=== PATIENT | female | born 1965 | race Asian ===

== ENCOUNTER 2016-06-04 08:58 | Outpatient (CLI) | payer OTHER ==
[~2016-06-04 08:58] MED LIST: ACET5TAB36 PO; AMOX875T8 PO; FLEXERIL5 MG PO; GLIM4TAB PO; GLIP5TAB65 PO; METF500T PO
== END 2016-06-04 10:58 | disposition home or self-care (01) ==
LOC: RAD 08:58
DX: M54.2 Cervicalgia (principal); M25.559 Pain in unspecified hip; M25.511 Pain in right shoulder

== ENCOUNTER 2017-02-09 12:55 | Outpatient (CLI) | payer OTHER | END 2017-02-09 19:25 | disposition home or self-care (01) | LOC: MAMMO 12:55 | DX: Z12.31 Encounter for screening mammogram for malignant neoplasm of breast (principal) ==

== ENCOUNTER 2017-05-23 16:15 | Outpatient (CLI) | payer OTHER | END 2017-05-23 17:15 | disposition home or self-care (01) | LOC: RAD 16:15 | DX: J40 Bronchitis, not specified as acute or chronic (principal); R05 Cough ==

== ENCOUNTER 2018-03-07 10:16 | Outpatient (CLI) | payer OTHER | END 2018-03-07 19:49 | disposition home or self-care (01) | LOC: MAMMO 10:16 | DX: Z12.31 Encounter for screening mammogram for malignant neoplasm of breast (principal) ==

== ENCOUNTER 2018-04-09 09:03 | Outpatient (CLI) | payer OTHER | END 2018-04-09 20:29 | disposition home or self-care (01) | LOC: MRI 09:03 | DX: M47.22 Other spondylosis with radiculopathy, cervical region (principal) ==

== ENCOUNTER 2018-12-17 09:38 | Outpatient (CLI) | payer OTHER ==
[2018-12-17 09:52] LABS: PLATELET COUNT 231 K/uL (152-353)
[2018-12-17 10:13] LABS: POTASSIUM 3.7 mmol/L (3.6-5.2)
== END 2018-12-17 20:36 | disposition home or self-care (01) ==
LOC: LABW 09:38
PROVIDERS: Physician Assistant
DX: I10 Essential (primary) hypertension (principal); E11.9 Type 2 diabetes mellitus without complications; Z79.4 Long term (current) use of insulin; E55.9 Vitamin D deficiency, unspecified
CPT/HCPCS: 36415; 80053; 82306; 83036; 83735; 84443; 85027

== ENCOUNTER 2019-07-08 07:20 | Outpatient (CLI) | payer OTHER ==
[2019-07-08 08:14] LABS: PLATELET COUNT 204 K/uL (152-353)
[2019-07-08 08:59] LABS: POTASSIUM 3.4 mmol/L (3.6-5.2)
== END 2019-07-08 19:08 | disposition home or self-care (01) ==
LOC: LABW 07:20
PROVIDERS: Internal Medicine
DX: E11.9 Type 2 diabetes mellitus without complications (principal)
CPT/HCPCS: 36415; 80053; 80061; 81000; 82043; 82570; 83036; 84439; 84443; 85027

== ENCOUNTER 2019-10-10 14:29 | Outpatient (CLI) | payer OTHER | END 2019-10-10 22:26 | disposition home or self-care (01) | LOC: LAB 14:29 | DX: L02.31 Cutaneous abscess of buttock (principal) | CPT/HCPCS: 87070; 87077; 87185; 87186; 87205 ==

== ENCOUNTER 2020-04-24 10:04 | Outpatient (CLI) | payer OTHER | END 2020-04-24 19:20 | disposition home or self-care (01) | LOC: MAMMO 10:04 | PROVIDERS: ATTEND Internal Medicine | DX: Z12.31 Encounter for screening mammogram for malignant neoplasm of breast (principal) ==

== ENCOUNTER 2020-05-28 14:25 | Outpatient (CLI) | payer OTHER ==
[~2020-05-28] VITALS: Ht 167.6 cm; Wt 92.8 kg
[2020-05-28 15:11] LABS: PLATELET COUNT 181 K/uL (152-353)
[2020-05-28 15:22] LABS: POTASSIUM 3.3 mmol/L (3.6-5.2)
== END 2020-05-28 16:52 | disposition home or self-care (01) ==
LOC: INF 14:25
PROVIDERS: ATTEND Family Medicine
DX: U07.1 COVID-19 (principal); I10 Essential (primary) hypertension
CPT/HCPCS: 36591; 80053; 85027; 96365; Q0239

== ENCOUNTER 2020-06-08 12:32 | Outpatient (CLI) | payer OTHER | END 2020-06-08 19:20 | disposition home or self-care (01) | LOC: RAD 12:32 | PROVIDERS: ATTEND Nurse Practitioner Family | DX: U07.1 COVID-19 (principal) ==

== ENCOUNTER 2020-09-03 10:27 | Outpatient (CLI) | payer OTHER | END 2020-09-03 19:25 | disposition home or self-care (01) | LOC: LABW 10:27 | PROVIDERS: ATTEND Nurse Practitioner Primary Care | DX: R19.7 Diarrhea, unspecified (principal) | CPT/HCPCS: 83630; 87015; 87045; 87324; 87328; 87329; 87449; 87899 ==

== ENCOUNTER 2021-04-25 13:37 | Emergency (ER) | payer OTHER ==
[~2021-04-25] VITALS: Ht 167.6 cm; Wt 88.5 kg
[2021-04-25 14:24] LABS: PLATELET COUNT 221 K/uL (152-353)
[2021-04-25 14:38] LABS: POTASSIUM 4.8 mmol/L (3.6-5.2); SODIUM 140 mmol/L (136-145)
[2021-04-25 16:45] VITALS: BP 137/79; TEMP 98.3
== END 2021-04-25 16:45 | disposition home or self-care (01) ==
LOC: ED 13:37
PROVIDERS: Emergency Medicine Emergency Medical Services
DX: R60.0 Localized edema (principal); Z98.890 Other specified postprocedural states
CPT/HCPCS: 36415; 80053; 81000; 84484; 85027; 96374; 99284; J1940

== ENCOUNTER 2021-04-28 12:10 | Outpatient (CLI) | payer OTHER | END 2021-04-28 19:46 | disposition home or self-care (01) | LOC: US 12:10 | PROVIDERS: ATTEND Internal Medicine | DX: R22.43 Localized swelling, mass and lump, lower limb, bilateral (principal) ==

== ENCOUNTER 2021-04-28 14:24 | Outpatient (CLI) | payer OTHER | END 2021-04-28 19:47 | disposition home or self-care (01) | LOC: MAMMO 14:24 | PROVIDERS: ATTEND Specialist | DX: Z12.31 Encounter for screening mammogram for malignant neoplasm of breast (principal) ==

== ENCOUNTER 2021-04-29 09:16 | Outpatient (CLI) | payer OTHER ==
[2021-04-29 10:23] LABS: POTASSIUM 3.5 mmol/L (3.6-5.2)
== END 2021-04-29 19:22 | disposition home or self-care (01) ==
LOC: LABW 09:16
PROVIDERS: ATTEND Internal Medicine
DX: E11.9 Type 2 diabetes mellitus without complications (principal); R22.43 Localized swelling, mass and lump, lower limb, bilateral
CPT/HCPCS: 36415; 80053; 80061; 82043; 83036; 83880; 84439; 84443

== ENCOUNTER 2021-07-27 12:56 | Outpatient (CLI) | payer OTHER | END 2021-07-27 19:13 | disposition home or self-care (01) | LOC: MRI 12:56 | PROVIDERS: ATTEND Specialist | DX: M47.27 Other spondylosis with radiculopathy, lumbosacral region (principal); G56.03 Carpal tunnel syndrome, bilateral upper limbs | CPT/HCPCS: 95885; 95913 ==

== ENCOUNTER 2022-12-12 16:45 | Observation (INO) | payer OTHER ==
[~2022-12-12] VITALS: Ht 170.2 cm; Wt 88.0 kg
[2022-12-12] VITALS (7 sets, daily range): BP systolic 115–156; BP diastolic 59–82; TEMP 98.5
[~2022-12-12 16:45] MED LIST changes: +904272561 PO
[2022-12-12 17:07] LABS: PLATELET COUNT 228 K/uL (152-353)
[2022-12-12 17:21] LABS: SODIUM 131 mmol/L (136-145)
[2022-12-12] MEDS ORDERED: GLIM4TAB PO (22:05)
[2022-12-12] MEDS ORDERED: ROSUVASTATIN CA20 MG PO (22:06)
[2022-12-12] MEDS ORDERED: LISI5TAB10 PO (22:06)
[2022-12-12] MEDS ORDERED: HYDR-3182 PO (22:10)
[2022-12-13] VITALS: BP 115/71; TEMP 97.9
[2022-12-13 00:08] VITALS: BP 118/70; TEMP 97.8; Ht 170.2 cm; Wt 88.0 kg
[2022-12-13 04:00] VITALS: BP 106/58; TEMP 97.9
[2022-12-13 05:38] LABS: PLATELET COUNT 192 K/uL (152-353)
[2022-12-13 06:04] LABS: POTASSIUM 4.2 mmol/L (3.6-5.2)
[2022-12-13 08:00] VITALS: BP 114/68; TEMP 97.5
== END 2022-12-13 11:14 | disposition home or self-care (01) ==
LOC: ED 16:45 → MED/SURG 17:40
PROVIDERS: Family Medicine; ADMIT Nurse Practitioner Family; ATTEND Internal Medicine Endocrinology, Diabetes & Metabolism
DX: R07.89 Other chest pain (principal); E11.9 Type 2 diabetes mellitus without complications; I10 Essential (primary) hypertension; E78.49 Other hyperlipidemia; G89.4 Chronic pain syndrome
CPT/HCPCS: 36415; 80048; 80053; 82948; 84484; 85027; 93005; 96361; 96372; 96374; 96376; 99221; 99284; G0378; J1815; J2270

== ENCOUNTER 2023-01-25 09:07 | Outpatient (CLI) | payer OTHER ==
[~2023-01-25 09:07] MED LIST changes: +HYDR-3182 PO; +LISI5TAB10 PO; +ROSUVASTATIN CA20 MG PO
== END 2023-01-25 19:48 | disposition home or self-care (01) ==
LOC: RAD 09:07
PROVIDERS: ATTEND Student in an Organized Health Care Education/Training Program
DX: M47.816 Spondylosis without myelopathy or radiculopathy, lumbar region (principal); M54.16 Radiculopathy, lumbar region; M48.062 Spinal stenosis, lumbar region with neurogenic claudication; M54.12 Radiculopathy, cervical region; M47.812 Spondylosis without myelopathy or radiculopathy, cervical region

== ENCOUNTER 2023-02-09 09:02 | Outpatient (CLI) | payer OTHER | END 2023-02-09 19:08 | disposition home or self-care (01) | LOC: RESP 09:02 | PROVIDERS: ATTEND Internal Medicine Cardiovascular Disease | DX: R07.89 Other chest pain (principal) ==

== ENCOUNTER 2023-02-13 08:43 | Outpatient (CLI) | payer OTHER | END 2023-02-13 19:00 | disposition home or self-care (01) | LOC: MRI 08:43 | PROVIDERS: ATTEND Student in an Organized Health Care Education/Training Program | DX: M48.062 Spinal stenosis, lumbar region with neurogenic claudication (principal); M54.16 Radiculopathy, lumbar region; M47.816 Spondylosis without myelopathy or radiculopathy, lumbar region; M54.12 Radiculopathy, cervical region; M47.812 Spondylosis without myelopathy or radiculopathy, cervical region ==

== ENCOUNTER 2023-02-15 08:47 | Outpatient (CLI) | payer OTHER | END 2023-02-15 19:09 | disposition home or self-care (01) | LOC: NM 08:47 | PROVIDERS: ATTEND Internal Medicine Cardiovascular Disease | DX: R07.89 Other chest pain (principal) | CPT/HCPCS: A9500 ==